=== PATIENT | female | born 1990 | race Caucasian/White ===

== ENCOUNTER 2020-09-05 10:36 | Day surgery (SDC) | payer MEDICAID, SELFPAY ==
[2020-08-31 13:16] VITALS: BMI 22.6
[2020-09-05 11:32] VITALS: BP 119/72; PULSE 76; RESP 16; TEMP 37.1; O2SAT 100
[2020-09-05 11:36] VITALS: BMI 21.4
--- NOTE | 2020-09-05 12:33 | P.CONAN_ITS ---
[facility] Past Medical History Medical History Bipolar 1 disorder Surgical History Surgical History History of bunionectomy of both great toes Social History Social History Smoking Status: Former smoker Years Smoked: 0 Smoking Quit Date: 2018 Patient Interested in Nicotine Replacement: No Patient Given Instructions on How to Stop Smoking: No Second Hand Smoke Exposure: No Use of substances other than those prescribed or required for medical reasons: No Advance Directives: No Advance Directives Information Provided: Yes Advance Directives on File: No Meds Allergies Allergy/AdvReac Type Severity Reaction Status Date / Time Penicillins Allergy Hives Verified 08/31/20 13:13 Home Medications Medication Instructions Recorded Confirmed Type duloxetine [Cymbalta] 60 mg PO DAILY 08/31/20 08/31/20 History gabapentin 300 mg PO TID 08/31/20 08/31/20 History omeprazole 20 mg PO DAILY 08/31/20 08/31/20 History Exam Exam Date and Time: September 05, 2020 1233 Height,Weight and Vital Signs: Height 5 ft 6 in Weight 60.328 kg Last Vital Signs Temp 98.8 F 09/05/20 11:32 Pulse 76 09/05/20 11:32 Resp 16 09/05/20 11:32 BP 119/72 09/05/20 11:32 Pulse Ox 100 09/05/20 11:32 Airway Mallampati Class: II TM Dist: >3cm Neck ROM: Full Loose/Missing/Broken Teeth: No Heart: [id number] Lungs: cta b/l Assessment and Plan Assessment Anesthesia Assessment: Anesthesia Plan Discussed and Chart Reviewed Final Anesthetic Review NPO: Yes ASA Class: II Final Preanesthetic Review: No Changes in Pt Med Stat, Meds/Allgs Chart Reviewed, Consent Obtained/Reviewed and Anes Risks/Benef Reviewed Patient Risk: Low Procedure Risk: Low Assessment/Block/Sedation in SS: Assess/Block/Sedation-SS Anesthetic Plan Anesthetic Plan: MAC: Disposition: Standard PACU
--- NOTE | 2020-09-05 12:35 | MHC.SHP ---
Pre-Procedural Eval Section A The patient is an INPATIENT: No Changes since office visit: No Cold of Flu in the past 2 weeks, No New Medical Problems, No Changes in Medication and No Patient answered all questions The History & Physical has been completed within 30 days and I have reviewed it.: Yes Section B Chief Complaint: vomitting and diarrhea Allergies: Allergies Allergy/AdvReac Type Severity Reaction Status Date / Time Penicillins Allergy Hives Verified 08/31/20 13:13 Plan Patient has been examined and remains a candidate for the planned procedure
[2020-09-05] MEDS: Lactated Ringers 1,000 ML 50 ML IVCONT (12:36)
[2020-09-05 13:12] VITALS: BP 127/46; PULSE 60; RESP 16; TEMP 36.4; O2SAT 100
--- NOTE | 2020-09-05 13:16 | PM.OP ---
Brief Operative Note Date of procedure: 09/05/20 Pre-op diagnosis: N&V, diarrhea Post-op diagnosis: same Surgeon: Severo Lucas Anesthesia: MAC Estimated blood loss (mL): 5 Pathology: other (multiple biopsies) Condition: stable Disposition: PACU
[2020-09-05 13:23] VITALS: BP 109/63; PULSE 53; RESP 18; TEMP 36.3; O2SAT 100
--- NOTE | 2020-09-05 14:00 | OP_ITS ---
SURGEON: Severo Lucas MD INDICATIONS: Nausea, vomiting, and diarrhea. PREOPERATIVE DIAGNOSIS: POSTOPERATIVE DIAGNOSIS: PROCEDURE PERFORMED: 1. Upper endoscopy with biopsy. 2. Colonoscopy to the terminal ileum. ESTIMATED BLOOD LOSS: COMPLICATIONS: ANESTHESIA: ASSISTANTS: SPECIMENS: MEDICATIONS: Monitored anesthesia care. DESCRIPTION OF PROCEDURE: History and physical performed. The risks and benefits of the procedure were explained to the patient. Informed consent was obtained. The patient was placed in the left lateral decubitus position. The Olympus video gastroscope was introduced into the esophagus, stomach, and duodenum. Examination was performed. The scope was removed. She was repositioned for colonoscopy. A digital rectal exam was performed and was found to be normal. The Olympus pediatric video colonoscope was introduced into the rectum and advanced to the cecum without difficulty. The cecum was identified by transillumination, palpation, and identification of ileocecal valve. Examination was performed and the scope was removed. She tolerated both procedures well and was taken to recovery area in stable condition. FINDINGS: UPPER ENDOSCOPY: Esophagus: The esophagus was normal. The biopsies were obtained from the EG junction. There was no esophagitis. Stomach: The stomach showed no evidence of masses, ulcers, or polyps. Antral biopsies were obtained to rule out H pylori. Duodenum: The bulb and second portion were normal. COLONOSCOPY: The terminal ileum was normal. Visualized colonic mucosa was normal. The quality of the prep was good. No polyps were identified. Biopsies were obtained from the terminal ileum and sigmoid colon. Retroflexed exam showed small internal hemorrhoids. IMPRESSION: 1. Normal upper endoscopy. 2. Normal colonoscopy. RECOMMENDATION: Follow up biopsy results. Screening colonoscopy by age 51. MD HECTOR Ivey/THEO / [id number] [facility]
== END 2020-09-05 13:43 | disposition home or self-care (01) ==
PROVIDERS: Visit Provider Internal Medicine Gastroenterology
PROC: (CPT 45378; principal; 2020-09-05 11:50)
DX: K29.70 Gastritis, unspecified, without bleeding (principal); K64.8 Other hemorrhoids; F31.9 Bipolar disorder, unspecified; Z88.0 Allergy status to penicillin; Z79.899 Other long term (current) drug therapy; Z87.891 Personal history of nicotine dependence
CPT/HCPCS: 45378; 43239; 88305; 88342